=== PATIENT | female | born 1940 | race Hispanic/Latino ===

== ENCOUNTER → 2019-10-23 | Emergency (ER) | payer SELFPAY ==
[~2019-10-23] MED LIST: SODIUM CHLORIDE 0.9% 1000 ML 1,000 ML ONE; SODIUM CHLORIDE 0.9% 250ML 250 ML ONE
== END ==
LOC: ED 16:53
DX: Z53.21 Procedure and treatment not carried out due to patient leaving prior to being seen by health care provider (principal)
CPT/HCPCS: J7030; J7050